=== PATIENT | female | born 1950 | race Caucasian/White ===

== ENCOUNTER 2019-12-13 11:22 | Outpatient (CLI) | payer MEDICARE, SELFPAY ==
--- NOTE | ~2019-12-13 | MM_ITS ---
EXAMINATION: MM screening kaden BI w carlos a HISTORY: Screening mammogram TECHNIQUE: Craniocaudal and mediolateral oblique 3-D tomosynthesis images were obtained and synthetic 2-D images were generated. CAD analysis was submitted and interpreted. COMPARISON: 12/30/2017, 12/15/2016, 10/30/2015 bilateral digital screening mammogram examinations BREAST PARENCHYMAL COMPOSITION: The breasts are heterogeneously dense, which may obscure small masses . FINDINGS: Occasional benign calcifications. There is no evidence of suspicious mass, calcification, o r architectural distortion to suggest malignancy in either breast. There has been no suspicious inter cortney change. IMPRESSION: 1. No mammographic evidence of malignancy. 2. Recommend routine screening mammography in one year. BI-RADS Category 2: Benign finding(s). Reviewed, dictated and finalized at location A. [employer] PROFESSION[employer]
== END 2019-12-13 11:23 | disposition home or self-care (01) ==
LOC: ANHIMG 11:25
PROVIDERS: PCP Internal Medicine; Visit Provider Nurse Practitioner
DX: Z12.31 Encounter for screening mammogram for malignant neoplasm of breast (principal)
CPT/HCPCS: 77063; 77067

== ENCOUNTER 2021-01-10 08:10 | Outpatient (CLI) | payer MEDICARE, SELFPAY ==
[2021-01-10 08:41] LABS: Eosinophils Absolute Auto 0.2 K/mm3 (0-0.3); Eosinophils Percent Auto 3.8 % (0-4.4); Hematocrit 39.3 % (37.0-47.0); Hemoglobin 12.5 g/dL (12.0-15.0); Immature Granulocyte Absolute 0.01 K/mm3 (0.00-0.031); Immature Granulocyte Percent A 0.2 % (0-0.5); Lymphocytes Absolute Auto 1.22 K/mm3 (0.9-3.2); Lymphocytes Percent Auto 29.1 % (18.3-44.2); Mean Corpuscular HGB Conc 31.8 g/dl (32-36); Mean Corpuscular Hemoglobin 30.6 pg (26-34); Mean Corpuscular Volume 96.1 fl (80-100); Mean Platelet Volume 9.7 fl (7.4-10.4); Monocytes Absolute Auto 0.4 K/mm3 (0.1-0.6); Monocytes Percent Auto 10.3 % (2.6-8.5); Neutrophils Absolute Auto 2.3 K/mm3 (1.3-6.7); Neutrophils Percent Auto 55.6 % (45.5-73.1); Platelet Count Result 259 k/mm3 (150-375); Red Blood Count 4.09 M/mm3 (4.2-5.4); Red Cell Distribution Width 12.9 % (11.5-14.5); White Blood Count 4.2 K/mm3 (4.5-10.0)
[2021-01-10 08:55] LABS: Alanine Aminotransferase 20 U/L (4-35); Albumin Level 4.4 g/dL (3.5-5.1); Alkaline Phosphatase 65 U/L (38-126); Anion Gap 2 mmol/L (8-16); Aspartate Amino Transferase 31 U/L (14-36); Bilirubin,Total 0.6 mg/dL (0.2-1.3); Blood Urea Nitrogen 20 mg/dL (7-17); Carbon Dioxide 33 mmol/L (22-30); Chloride 107 mmol/L (98-107); Cholesterol 215 mg/dL (0-200); Estimated Glomerular Filt Rate > 60; Glucose 94 mg/dL (65-105); HDL Direct 83 mg/dL; Potassium 4.1 mmol/L (3.4-5.0); Sodium 142 mmol/L (137-145); Triglycerides 60 mg/dL (<150)
[2021-01-10 09:06] LABS: LDL Cholesterol Direct 85 mg/dL
== END 2021-01-10 08:11 | disposition home or self-care (01) ==
PROVIDERS: PCP Internal Medicine; Visit Provider Nurse Practitioner
DX: E78.00 Pure hypercholesterolemia, unspecified (principal); Z13.228 Encounter for screening for other metabolic disorders; E03.9 Hypothyroidism, unspecified; Z79.899 Other long term (current) drug therapy
CPT/HCPCS: 36415; 80053; 80061; 82248; 84443; 85025

== ENCOUNTER 2021-01-22 16:00 | Outpatient (CLI) | payer MEDICARE, SELFPAY ==
--- NOTE | ~2021-01-22 | MR_ITS ---
EXAMINATION: MR shoulder LT wo con DATE: 01/22/2021 16:54 INDICATION: Left shoulder pain. TECHNIQUE: Magnetic resonance imaging (MRI) of the left shoulder was performed without intravenous co ntrast. Sequences included axial PD-weighted FS FSE, coronal oblique PD-weighted FS FSE and T2-weight ed FS FSE, and sagittal oblique T2-weighted FS FSE and T1-weighted FSE. COMPARISON: None. FINDINGS: Coracoacromial arch: The acromion undersurface is curved in morphology (type II). There is severe acromioclavicular joint osteoarthritis. There is mild subacromial/subdeltoid bursitis. Rotator cuff: There is severe supraspinatus tendinopathy with shallow bursal sided fraying. There is mild infraspin atus tendinopathy. Teres minor tendon is normal. There is mild subscapularis tendinopathy. There is n o asymmetric fatty atrophy of the rotator cuff muscle bellies. Biceps tendon and glenoid labrum: Biceps tendon is in bicipital groove. There is severe intra-articular biceps tendinopathy. There is d egeneration of the superior labrum without well-defined tear. Fluid: There is no glenohumeral joint effusion. Bones/cartilage: There is cartilage surface irregularity of glenoid and humeral head. IMPRESSION: 1. Severe rotator cuff tendinopathy with shallow bursal sided fraying of supraspinatus tendon. 2. Mild glenohumeral joint chondrosis. 3. Severe acromioclavicular joint osteoarthritis. 4. Mild subacromial/subdeltoid bursitis. 5. Severe intra-articular biceps tendinopathy. Reviewed, dictated and finalized at location A. IMPRESSION: 1. Severe rotator cuff tendinopathy with shallow bursal sided fraying of supras pinatus tendon. 2. Mild glenohumeral joint chondrosis. 3. Severe acromioclavicular joint osteoarthritis. 4. Mild subacromial/subdeltoid bursitis. 5. Severe intra-articular biceps tendinopathy.
== END 2021-01-22 16:01 | disposition home or self-care (01) ==
PROVIDERS: PCP Internal Medicine; Visit Provider Nurse Practitioner
DX: M25.512 Pain in left shoulder (principal); M75.82 Other shoulder lesions, left shoulder; M22.2X2 Patellofemoral disorders, left knee; M19.012 Primary osteoarthritis, left shoulder; M75.52 Bursitis of left shoulder; M75.22 Bicipital tendinitis, left shoulder
CPT/HCPCS: 73221

== ENCOUNTER 2021-02-27 15:01 | Outpatient (CLI) | payer MEDICARE, SELFPAY ==
--- NOTE | ~2021-02-27 | DEXA_ITS ---
Bone Density Report Name: Rosita Haile Age: 70 Sex: Female Ethnicity: White Date of : 1950 Indication: osteopenia; monitoring treatment; Referring Provider: Elsi Hudson Study: Bone densitometry was performed. Exam Date: February 27, 2021 Accession number: [id number] Bone Density: Region BMD T-score Z-score Classification AP Spine (L1-L4) 0.796 -2.3 -0.3 Osteopenia Femoral Neck (Left) 0.757 -0.8 0.9 Normal Total Hip (Left) 0.798 -1.2 0.3 Osteopenia Total Hip Bilateral Avg 0.810 -1.1 0.4 Osteopenia Femoral Neck (Right) 0.779 -0.6 1.1 Normal Total Hip (Right) 0.821 -1.0 0.4 Normal World Health Organization criteria for BMD impression classify patients as: Normal (T-score at or above -1.0), Osteopenia (T-score between -1.0 and -2.5), or Osteoporosis (T-score at or below -2.5). 10-year Fracture Risk: FRAX not reported because: Treated for osteoporosis Previous Exams: Region Exam Age BMD T-score BMD Change BMD Change Date g/cm2 vs Baseline vs Previous AP Spine(L1-L4) 02/27/2021 70 0.796 -2.3 -0.013(-1.6%) -0.015(-1.8%) 11/09/2018 68 0.810 -2.2 0.002(0.2%) 0.002(0.2%) 11/21/2014 64 0.809 -2.2 Total Hip(Left) 02/27/2021 70 0.798 -1.2 -0.055(-6.4%)* -0.035(-4.2%)* 11/09/2018 68 0.834 -0.9 -0.019(-2.3%) -0.019(-2.3%) 11/21/2014 64 0.853 -0.7 Total Hip(Right) 02/27/2021 70 0.821 -1.0 -0.046(-5.3%)* 0.003(0.4%) 11/09/2018 68 0.817 -1.0 -0.049(-5.6%)* -0.049(-5.6%)* 11/21/2014 64 0.866 -0.6 *Denotes significance at 95% confidence level, LSC for AP Spine = 0.022 g/cm2, LSC for Total Hip = 0.027 g/cm2 Clinical Information Provided by Patient: Is being treated for osteoporosis Has used the following medications: Vitamin D, Calcium Patient maximum height was 64.5 Menopause Age: 55 Drinks caffeinated beverages Onset of menses at age 16 Number of children 2 Impression: The patient has low bone mass, based on the Total Spine T-score. The BMD for the Total Hip(Left) decreased, changing by -4.2% since the last DXA exam. Discussion: SIGNIFICANT BONE LOSS OBSERVED. Adherence to therapy (including calcium and vitamin D intake) should be assessed. If compliance is not a factor, review management and exclusion of secondary causes of bone loss. It is important to ask patients whether they are taking their medications and to encourage continued and appropriate compliance with their osteoporosis therapies to reduce
--- NOTE | ~2021-02-27 | MM_ITS ---
EXAMINATION: MM screening kaden BI w carlos a HISTORY: Screening TECHNIQUE: Craniocaudal and mediolateral oblique 3-D tomosynthesis images were obtained and synthetic 2-D images were generated. CAD analysis was submitted and interpreted. COMPARISON: Comparison to multiple prior studies sequentially, with oldest reviewed study dated 09/11. BREAST PARENCHYMAL COMPOSITION: The breasts are heterogeneously dense, which may obscure small masses . FINDINGS: There is no evidence of suspicious mass, calcification, or architectural distortion to sugg est malignancy in either breast. There has been no suspicious interval change. IMPRESSION: 1. No mammographic evidence of malignancy. 2. Recommend routine screening mammography in one year. BI-RADS Category 1: Negative Reviewed, dictated and finalized at location A.
== END 2021-02-27 15:02 | disposition home or self-care (01) ==
PROVIDERS: PCP Internal Medicine; Visit Provider Nurse Practitioner
DX: Z12.31 Encounter for screening mammogram for malignant neoplasm of breast (principal); Z78.0 Asymptomatic menopausal state; M85.88 Other specified disorders of bone density and structure, other site; M85.852 Other specified disorders of bone density and structure, left thigh
CPT/HCPCS: 77063; 77067; 77080

== ENCOUNTER 2021-12-17 07:03 | Outpatient (CLI) | payer MEDICARE, SELFPAY ==
[2021-12-17 07:19] LABS: Basophils Percent Auto 0.8 % (0.2-1.2); Eosinophils Absolute Auto 0.2 K/mm3 (0-0.3); Eosinophils Percent Auto 3.3 % (0-4.4); Hematocrit 37.5 % (37.0-47.0); Hemoglobin 12.1 g/dL (12.0-15.0); Immature Granulocyte Absolute 0.01 K/mm3 (0.00-0.031); Immature Granulocyte Percent A 0.2 % (0-0.5); Lymphocytes Absolute Auto 1.31 K/mm3 (0.9-3.2); Lymphocytes Percent Auto 26.8 % (18.3-44.2); Mean Corpuscular HGB Conc 32.3 g/dl (32-36); Mean Corpuscular Hemoglobin 30.6 pg (26-34); Mean Corpuscular Volume 94.9 fl (80-100); Mean Platelet Volume 9.4 fl (7.4-10.4); Monocytes Absolute Auto 0.4 K/mm3 (0.1-0.6); Neutrophils Absolute Auto 2.9 K/mm3 (1.3-6.7); Neutrophils Percent Auto 59.9 % (45.5-73.1); Platelet Count Result 249 k/mm3 (150-375); Red Blood Count 3.95 M/mm3 (4.2-5.4); Red Cell Distribution Width 12.8 % (11.5-14.5); White Blood Count 4.9 K/mm3 (4.5-10.0)
[2021-12-17 07:38] LABS: Alanine Aminotransferase 16 U/L (4-35); Albumin Level 4.2 g/dL (3.5-5.1); Alkaline Phosphatase 72 U/L (38-126); Anion Gap 3 mmol/L (8-16); Aspartate Amino Transferase 29 U/L (14-36); Bilirubin,Total 0.5 mg/dL (0.2-1.3); Blood Urea Nitrogen 17 mg/dL (7-17); Calcium 9.5 mg/dL (8.4-10.2); Carbon Dioxide 31 mmol/L (22-30); Chloride 109 mmol/L (98-107); Cholesterol 212 mg/dL (0-200); Estimated Glomerular Filt Rate > 60; Glucose 99 mg/dL (65-110); HDL Direct 69 mg/dL; Potassium 4.5 mmol/L (3.4-5.0); Sodium 143 mmol/L (137-145); Triglycerides 88 mg/dL (<150)
[2021-12-17 07:47] LABS: LDL Cholesterol Direct 86 mg/dL
[2021-12-17 09:25] LABS: Vitamin D 25 Hydroxy 59.8 ng/mL
== END 2021-12-17 07:04 | disposition home or self-care (01) ==
LOC: ANHLAB 07:06
PROVIDERS: PCP Internal Medicine; Visit Provider Nurse Practitioner
DX: E78.00 Pure hypercholesterolemia, unspecified (principal); M85.80 Other specified disorders of bone density and structure, unspecified site; E03.9 Hypothyroidism, unspecified; Z13.228 Encounter for screening for other metabolic disorders
CPT/HCPCS: 36415; 80053; 80061; 82306; 84443; 85025

== ENCOUNTER 2022-03-05 09:25 | Outpatient (CLI) | payer MEDICARE, SELFPAY ==
--- NOTE | ~2022-03-05 | MM_ITS ---
EXAMINATION: MM screening kaden BI w carlos a HISTORY: Screening mammogram TECHNIQUE: Craniocaudal and mediolateral oblique 3-D tomosynthesis images were obtained and synthetic 2-D images were generated. CAD analysis was submitted and interpreted. COMPARISON: 02/27/2021, 12/2019, 12/30/2017 bilateral screening mammogram examinations BREAST PARENCHYMAL COMPOSITION: The breasts are heterogeneously dense, which may obscure small masses . FINDINGS: There is no evidence of suspicious mass, calcification, or architectural distortion to sugg est malignancy in either breast. There has been no suspicious interval change. IMPRESSION: 1. No mammographic evidence of malignancy. 2. Recommend routine screening mammography in one year. BI-RADS Category 1: Negative Reviewed, dictated and finalized at location A.
== END 2022-03-05 09:26 | disposition home or self-care (01) ==
LOC: ANHIMG 09:26
PROVIDERS: PCP Internal Medicine; Visit Provider Nurse Practitioner
DX: Z12.31 Encounter for screening mammogram for malignant neoplasm of breast (principal)
CPT/HCPCS: 77063; 77067

== ENCOUNTER 2022-03-19 14:58 | Outpatient (CLI) | payer MEDICARE, SELFPAY ==
--- NOTE | ~2022-03-19 | XR_ITS ---
XR lumbar spine 2-3V DATE: 03/19/2022 15:15 INDICATION: Low back pain, right side. No injury. TECHNIQUE: AP, lateral, coned lateral lumbosacral views COMPARISON: None FINDINGS: There is a transitional lumbosacral vertebra and 4 functional lumbar vertebrae. There is mild levoscoliosis of the lumbar spine. No fracture or bone destruction. The included lower thoracic and lumbar pedicles are intact. There is moderately severe degenerative disc disease 2 interspaces above the transitional lumbosacral vertebra and mild degenerative disc disease and slight retrolisthesis at C3 interspaces above the tr ansitional lumbosacral vertebra. There is minimal degenerative disc disease 4 interspaces above the transitional lumbosacral vertebra. The sacroiliac joints are intact. IMPRESSION: Mild levoscoliosis Multilevel degenerative disc disease Reviewed, dictated and finalized at location A.
== END 2022-03-19 14:59 | disposition home or self-care (01) ==
PROVIDERS: PCP Internal Medicine; Visit Provider Nurse Practitioner
DX: M51.36 Other intervertebral disc degeneration, lumbar region (principal)
CPT/HCPCS: 72100

== ENCOUNTER 2022-08-06 11:53 | Outpatient (CLI) | payer MEDICARE, SELFPAY ==
[2022-08-06 19:34] LABS: Alanine Aminotransferase 19 U/L (6-35); Aspartate Amino Transferase 27 U/L (14-36)
== END 2022-08-06 11:54 | disposition home or self-care (01) ==
LOC: ANHGOSHLAB 11:58
PROVIDERS: PCP Internal Medicine; Visit Provider Podiatrist Foot & Ankle Surgery
DX: B35.1 Tinea unguium (principal)
CPT/HCPCS: 36415; 84450; 84460

== ENCOUNTER → 2022-08-06 12:12 | Outpatient (CLI) | payer MEDICARE, SELFPAY ==
--- NOTE | ~2022-08-06 | XR_ITS ---
XR hip RT min 2V 08/06/2022 12:31 Indication: Right hip pain Procedure: 3 views right hip Comparison: 05/13/2004 Findings: There is severe osteoarthritis of the right hip. No fracture or traumatic malalignment. No significant soft tissue abnormality. No foreign bodies. Impression: 1: Severe osteoarthritis of the right hip. Reviewed, dictated and finalized at location B. Impression: 1: Severe osteoarthritis of the right hip.
== END ==
PROVIDERS: PCP Nurse Practitioner; Visit Provider Nurse Practitioner
DX: M16.11 Unilateral primary osteoarthritis, right hip (principal)
CPT/HCPCS: 73502

== ENCOUNTER → 2022-08-12 13:11 | Outpatient (CLI) | payer MEDICARE, SELFPAY ==
--- NOTE | ~2022-08-12 | MR_ITS ---
EXAMINATION: MR lumbar spine wo con DATE: 08/12/2022 13:53 INDICATION: Low back pain. TECHNIQUE: Magnetic resonance imaging (MRI) of the lumbar spine was performed without intravenous con trast. Sequences included sagittal T2-weighted FSE, sagittal T2-weighted FS FSE, sagittal T1-weighted FSE, and axial T2-weighted FSE. COMPARISON: None. FINDINGS: There is 3 degrees levocurvature of lumbar spine. Vertebral body heights are normal. L5 is a transitional segment. Vertebral body heights are normal. There is mildly decreased disc height at L 2-L3, severely decreased disc height at L3-L4, and mildly decreased disc height at L4-L5. The distal spinal cord signal intensity is normal. The conus medullaris is at L1-L2. The following disc levels a re specifically discussed: L1-L2: The disc is bulging. There is mild bilateral facet joint osteoarthritis. There is mild bilater al neural foraminal stenosis. There is mild central canal stenosis. L2-L3: The disc is bulging and has an annular fissure. There is mild bilateral facet joint osteoarthr itis. There is mild bilateral neural foraminal stenosis. There is mild central canal stenosis. L3-L4: The disc is bulging and has an annular fissure. There is moderate bilateral facet joint osteoa rthritis. There is mild bilateral neural foraminal stenosis. There is mild central canal stenosis. L4-L5: The disc is bulging. There is severe bilateral facet joint osteoarthritis. There is mild bilat eral neural foraminal stenosis. There is mild central canal stenosis. L5-S1: The disc does not extend beyond the endplate margin. There is no facet joint osteoarthritis. T here is no neural foraminal stenosis. There is no central canal stenosis. IMPRESSION: 1. Severe lumbar spondylosis. Reviewed, dictated and finalized at location A.
== END ==
PROVIDERS: PCP Internal Medicine; Visit Provider Nurse Practitioner
DX: M47.896 Other spondylosis, lumbar region (principal)
CPT/HCPCS: 72148

== ENCOUNTER 2022-10-14 12:45 | Outpatient (CLI) | payer MEDICARE, SELFPAY ==
--- NOTE | 2022-10-14 12:56 | ECG_ITS ---
Measurements Intervals [place] Rate: 66 P: 71 [place]: 139 QRS: 23 QRSD: 89 T: 55 QT: 392 QTc: 412 Interpretive Statements SINUS RHYTHM ATRIAL PREMATURE COMPLEX BASELINE ARTIFACT- I, II, III, AVR, AVL, AVF BORDERLINE ECG NO PREVIOUS ECG AVAILABLE FOR COMPARISON Electronically Signed On 10-14-2022 13:45:18 [employer] by Dash Gonzales D.O.
== END 2022-10-14 12:46 | disposition home or self-care (01) ==
PROVIDERS: PCP Internal Medicine; Visit Provider Podiatrist Foot & Ankle Surgery
DX: E78.00 Pure hypercholesterolemia, unspecified (principal); Z01.818 Encounter for other preprocedural examination; R94.31 Abnormal electrocardiogram [ECG] [EKG]
CPT/HCPCS: 93005

== ENCOUNTER 2022-10-16 00:43 | Day surgery (SDC) | payer MEDICARE, SELFPAY ==
[2022-10-13 11:52] VITALS: BMI 18.1
--- NOTE | 2022-10-13 12:02 | PC.NURSE ---
PRE-OP INSTRUCTIONS, PLEASE READ CAREFULLY Report to the Outpatient Waiting Room, entrance under the green pavilion located off [facility], at time _0900_ on date _10/16/22_. Planned Procedure Time: _1100_. Time changes happen often and if your time is changed the preop area will call you the afternoon before. - You and your visitor will be asked to self-screen and do not enter if you have any COVID symptoms. - Only one visitor is requested with a max of two and NO children visitors are allowed at this time. - The patient visitor may be requested to leave or wait in car when not with patient due to distancing restrictions. - A mask is REQUIRED within the hospital. Patients may have clear liquids (water, carbonated beverages, clear teas, apple juice) until 3 hours prior to surgery with a maximum of 20 ounces. - No food from midnight until time of surgery Take the following medications with a SIP of water the morning of surgery: __LEVOTHYROXINE__ Medications to discontinue per physician _PT STATES ALREADY STOPPING VITAMINS/SUPPLEMENTS __ Date of last dose_10/11/22_ Please no make-up, nail burmese, hairspray, perfume, deodorant, or body powder the day of surgery. No jewelry (including any body piercings) or valuables the day of surgery, leave them at home. Please take a shower or bath the night before, or the morning of, surgery with an antibacterial soap. Wear comfortable, loose fitting clothing. - Jewelry must be removed prior to entering the operating room. Rings and piercings that are not removed may be cut off. - The hospital will not accept responsibility for valuables. - Please leave all valuables, including medications, at home the day of surgery. If you are going home after surgery, a licensed star route mail driver must drive you home. - NO public transportation without another adult if you receive anesthesia. - We recommend that an adult stay with you for 24 hours following discharge. - We also recommend that you do not drive, make important decision, drink alcoholic beverages, or take any drugs that were not prescribed by your health care provider for at least 24 hours after your discharge time. Follow any additional instructions given to you from your surgeon. If you or anyone in your household have experienced Covid symptoms in the past week, please notify your surgeon or the nurse liaison at the phone number below for possible testing. Telephone instructions given to _PATIENT_and asked if any additional questions and then verbalized understanding. Patient advised to call surgeon office or pre surgery nurse liaison [phone] if any additional questions.
--- NOTE | 2022-10-15 09:53 | WPDANESEPPF ---
Anes - Initial Pre Proc Eval Procedure: Operation Date: 10/16/22 11:00 Proposed Procedures p Arthrodesis of First Metatarsal Phalangeal Joint Left Foot - Calvin Washington JR, MD Date/Time: 10/15/22 09:53 Surgeon: Calvin Washington JR, MD Pre Op Diagnosis: Arthritic Bunion Left Foot Patient Data Age: 72 Gender: F Height: 1.61 m Weight: 47.27 kg Allergies Allergy/AdvReac Type Severity Reaction Status Date / Time No Known Allergies Allergy Mild Verified 10/13/22 11:49 Home Medications Medication Instructions Recorded Confirmed Type calcium carbonate-magnesium oxide 2 tablet PO DAILY 12/25/21 10/13/22 History 250 mg-155 mg tablet cholecalciferol (vitamin D3) 25 25 mcg PO DAILY 12/25/21 10/13/22 History mcg (1,000 unit) capsule fluticasone propionate 50 2 spray intranasal DAILY PRN 12/25/21 10/13/22 History mcg/actuation nasal Congestion spray,suspension (Flonase Allergy Relief) mecobalamin (vitamin B12) 1,000 1,000 mcg PO .qod 12/25/21 10/13/22 History mcg chewable tablet zinc 50 mg tablet 30 mg PO DAILY 12/25/21 10/13/22 History ascorbate calcium (vitamin C) 500 500 mg PO DAILY 03/31/22 10/13/22 History mg tablet vitamins A,C,D-quae-arfhkv 2,148 2 tablet PO DAILY 08/06/22 10/13/22 History mcg-113 mg-45 mg-17.4 mg tablet (PreserVision AREDS) levothyroxine 50 mcg tablet See Rx Instructions .Route 08/11/22 10/13/22 Rx .COMPLEX #90 tabs pravastatin 10 mg tablet See Rx Instructions .Route 09/15/22 10/13/22 Rx .COMPLEX #90 tabs terbinafine HCl 250 mg tablet 250 mg DAILY 10/13/22 10/13/22 History Patient hx anesthesia problems: none Family hx anesthesia problems: none Results Review: All pre-operative results and documents have been reviewed as part of the pre-operative evaluation. [facility] Past Medical History Medical History (Updated 10/15/22 @ 09:54 by Santy Mahan MD) Cataract Degenerative disc disease History of vaginal delivery Hypercholesterolemia Hypothyroidism Lumbar back pain Osteoarthritis Osteopenia Peripheral neuropathy Personal history of twin in prior Precancerous lesion (~11/2021) nose Surgical History Surgical History H/O left breast biopsy x 2 History of carpal tunnel release Left rist History of repair of cleft lip History of surgical removal of skin lesion Precancerous Nose Family History Family History Mother Cerebrovascular accident Family history of hypercholesterolemia Hypertension Dementia Thyroid disorder Father Lung cancer Hypertension Heart disease Son Hypertension Grandparent Diabetes mellitus Hypertension Thyroid disorder Uterine cancer Ovarian cancer Social History Social History Social History: Caffeine-2 cups daily Smoking status: Never smoker Second hand tobacco smoke exposure: No Alcohol intake: current Alcohol use details: LESS THAN 1 DRINK/WEEK Substance use: never Substance use type: does not use Living arrangements: with family Spiritual care concerns: No Anes - Eval Final PreProcedure Day of Procedure 10/15/22 09:53 Patient weight: normal Heart: regular rate and rhythm Lungs: clear to auscultation and normal air movement Airway: Mallampati scale class II Neurological: alert and oriented Last oral intake: >/= 8 hours ASA classification: II Emergent: no Anesthetic plan: proceed Anesthesia type and monitoring: general LMA Results Review: All pre-operative results and documents have been reviewed as part of the pre-operative evaluation. Informed Consent: The patient's anesthetic plan and its attendant risks and benefits were discussed with the patient/family/POA. Questions were solicited and answers provided to the satisfaction of the patient/family/POA.
[2022-10-16] VITALS (8 sets, daily range): BP systolic 104–140; BP diastolic 51–71; PULSE 61–78; RESP 10–16; TEMP 36.6–37.3; O2SAT 99–100
--- NOTE | ~2022-10-16 | XR_ITS ---
EXAMINATION: XR surgery orthopedic DATE: 10/16/2022 11:31 INDICATION: Arthritic bunion of left foot. TECHNIQUE: 2 intraoperative spot fluoroscopic views of left foot were obtained. I was not present. Fl uoroscopy exposure time was 5 seconds. COMPARISON: None. FINDINGS: There are changes of arthrodesis procedure of first metatarsophalangeal joint with dorsal p late and screws. IMPRESSION: 1. Arthrodesis of first metatarsophalangeal joint. Reviewed, dictated and finalized at location A. 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
--- NOTE | 2022-10-16 07:17 | WPDHPUPDATE1 ---
History and Physical Update Update Date/Time: 10/16/22 07:17 History and Physical has been reviewed, including an updated exam of the patient. There are NO changes in the patient's condition. Risks, benefits, and alternatives have been discussed and questions answered. Patient agrees to proceed with procedure.
[2022-10-16] MEDS: LACTATED RINGERS 1,000 ML 30 ML IV CONT ×2 (10:05→11:45)
[2022-10-16] MEDS: ceFAZolin 2 GM/D5W 50 ML 2 GM/50 ML BAG IVPB (10:34)
[2022-10-16] MEDS: LIDOCAINE HCL 2% PF INJ 5 ML VIAL 20 ML INFILTRATE (11:08)
--- NOTE | 2022-10-16 12:05 | W.PM.PROC2 ---
Procedure Note - Detailed Date of Procedure 10/16/22 Pre-op Diagnosis Arthritic Bunion Left Foot Post-op Diagnosis Same Procedure Performed Arthrodesis of the first metatarsal phalangeal joint left foot Surgeon Calvin Washington JR, TIM Anesthesia General and Local Indications Painful left first metatarsal with a prominent bunion deformity Findings several cartilage defects to the head of the first metatarsal with significant cartilage denudation Description of Procedure PROCEDURE IN DETAIL: Under mild sedation, the patient was brought into the operating room, placed on the operating table in supine position. A pneumatic ankle tourniquet was placed about the patient's ipsilateral ankle. Following general LMA, a local anesthetic block was obtained about the foot and ankle utilizing 20 cc of 2% Lidocaine plain and 0.5% Marcaine plain. The foot was then scrubbed, prepped, and draped in the usual aseptic manner. An Esmarch bandage was then used to exsanguinate the patient's foot and the pneumatic ankle tourniquet was then inflated. Surgery began in the following manner: Attention was directed to the dorsal aspect of the 1st metatarsophalangeal joint where there was a large subcutaneous prominence noted along the dorsomedial aspect of the joint. The incision was made starting along the central shaft of the 1st metatarsal and extending just proximal to the interphalangeal joint of the hallux. The incision was continued deep down through the subcutaneous tissues using sharp and blunt dissection. All bleeders were cauterized as necessary. At this point, the dissection was continued down to the level of the periosteum and capsular structures overlying the 1st metatarsophalangeal joint. A full length periosteum and capsular incision was made just medial to the extensor hallucis longus tendon. The periosteum and capsular structures were freed from the base of the proximal phalanx as well as the distal 1st metatarsal. At this point, the 1st metatarsophalangeal joint was identified. There was almost complete loss of articular cartilage to the head of the 1st metatarsal as well as the base of the proximal phalanx. There was significant broadening and hypertrophy of the 1st metatarsophalangeal joint. Utilizing a sagittal bone saw, the hypertrophied 1st metatarsal was resected dorsally, medially, and laterally. A power bur was used to make sure that there were no rough edges and also to further debride the hypertrophic 1st metatarsal. Next, a rongeur was used to resect all hypertrophic base of the proximal phalanx. At this point, the reamer system for the [employer] system was used to denude the degenerative cartilage from the head of the 1st metatarsal as well as the base of the proximal phalanx. The cartilage and subchondral bone were fully debrided utilizing the reamer system until healthy bleeding bone was noted. Next, a 2-0 drill bit was used to further fenestrate the head of the 1st metatarsal as well as the base of the proximal phalanx in order to allow fusion across the 1st metatarsophalangeal joint. Next, a 0.045 inch K-wire was driven from the medial aspect of the base of the proximal phalanx into the head of the 1st metatarsal in order to serve as temporary fixation. A large steel plate was used to make sure that the hallux was in a rectus position both in the sagittal plane as well as the frontal and transverse plane. Excellent position of the hallux was noted. Next, a CrossCHECK plate was placed atop the 1st metatarsophalangeal joint held in position with [place] wires. Utilizing standard principles and techniques, the 2 distal drill holes were drilled and two 2.7mm mm fully-threaded locking screws were driven from dorsal to plantar holding the distal aspect of the plate intact. At this point, a 3.5mm lag screw was driven from dorsal distal to proximal plantar across the 1st metatarsophalangeal joint through the plate sy
== END 2022-10-16 13:23 | disposition home or self-care (01) ==
PROVIDERS: PCP Internal Medicine; Visit Provider Podiatrist Foot & Ankle Surgery
PROC: (CPT 28750; principal; 2022-10-16 11:00)
DX: M21.612 Bunion of left foot (principal); M19.072 Primary osteoarthritis, left ankle and foot; E78.00 Pure hypercholesterolemia, unspecified; E03.9 Hypothyroidism, unspecified; G62.9 Polyneuropathy, unspecified; M85.80 Other specified disorders of bone density and structure, unspecified site
CPT/HCPCS: 28750; 99199; C1713; J0690; J1100; J1170; J2250; J2370; J2405; J2704; J3010; J7120

== ENCOUNTER 2023-08-19 06:54 | Outpatient (CLI) | payer MEDICARE, SELFPAY ==
[2023-08-19 08:18] LABS: Basophils Percent Auto 0.7 % (0.2-1.2); Eosinophils Absolute Auto 0.1 K/mm3 (0-0.3); Eosinophils Percent Auto 2.7 % (0-4.4); Hematocrit 38.7 % (37.0-47.0); Hemoglobin 11.9 g/dL (12.0-15.0); Immature Granulocyte Absolute 0.02 K/mm3 (0.00-0.031); Immature Granulocyte Percent A 0.5 % (0-0.5); Lymphocytes Absolute Auto 0.85 K/mm3 (0.9-3.2); Lymphocytes Percent Auto 20.5 % (18.3-44.2); Mean Corpuscular HGB Conc 30.7 g/dl (32-36); Mean Corpuscular Hemoglobin 29.7 pg (26-34); Mean Corpuscular Volume 96.5 fl (80-100); Mean Platelet Volume 9.9 fl (7.4-10.4); Monocytes Absolute Auto 0.5 K/mm3 (0.1-0.6); Monocytes Percent Auto 11.3 % (2.6-8.5); Neutrophils Absolute Auto 2.7 K/mm3 (1.3-6.7); Neutrophils Percent Auto 64.3 % (45.5-73.1); Platelet Count Result 265 k/mm3 (150-375); Red Blood Count 4.01 M/mm3 (4.2-5.4); Red Cell Distribution Width 12.8 % (11.5-14.5); White Blood Count 4.2 K/mm3 (4.5-10.0)
[2023-08-19 08:31] LABS: Alanine Aminotransferase 17 U/L (6-35); Alkaline Phosphatase 71 U/L (38-126); Anion Gap 3 mmol/L (8-16); Aspartate Amino Transferase 29 U/L (14-36); Bilirubin,Total 0.7 mg/dL (0.2-1.3); Blood Urea Nitrogen 21 mg/dL (7-17); Calcium 9.5 mg/dL (8.4-10.2); Carbon Dioxide 32 mmol/L (22-30); Chloride 105 mmol/L (98-107); Cholesterol 209 mg/dL (0-200); Estimated Glomerular Filt Rate > 60; Glucose 93 mg/dL (65-110); HDL Direct 74 mg/dL; Sodium 140 mmol/L (137-145); Triglycerides 55 mg/dL (<150)
[2023-08-19 08:42] LABS: LDL Cholesterol Direct 95 mg/dL
[2023-08-19 08:59] LABS: Thyroid Stimulating Hormone 0.507 uIU/mL (0.465-4.680)
== END 2023-08-19 06:55 | disposition home or self-care (01) ==
LOC: ANHLAB 07:00
PROVIDERS: PCP Internal Medicine; Visit Provider Nurse Practitioner
DX: E03.9 Hypothyroidism, unspecified (principal); E78.00 Pure hypercholesterolemia, unspecified; Z13.29 Encounter for screening for other suspected endocrine disorder
CPT/HCPCS: 36415; 80053; 80061; 84443; 85025

== ENCOUNTER 2023-09-27 13:02 | Emergency (ER) | payer MEDICARE, SELFPAY ==
[2023-09-27 13:15] VITALS: BP 100/64; PULSE 89; RESP 16; TEMP 37.7; O2SAT 98
--- NOTE | 2023-09-27 13:35 | ED.URI ---
HPI - URI/Sore Throat General Chief Complaint: Upper Respiratory Infection Stated Complaint: Sinus Infection Symptoms Time Seen by Provider: 09/27/23 13:30 Source: patient, RN notes reviewed and old records reviewed Mode of arrival: ambulatory Limitations: no limitations History of Present Illness HPI Narrative: 73-year-old female presents to [facility] with complaints of 2 weeks of some sinus congestion and pressure with symptoms increasing for the past 4-5 days. Patient reports that she has some right ear pressure, right sided facial pressure with frontal headache, cough with yellow phlegm noted. Patient reports that she has history of previous sinus infections and seasonal allergies.Patint reports that she has been using her nasocort and also some Vicks Vapo Rub for her symptoms.Patient reports no known fevers,chills or sweats or any body aches. MD elicited complaint: cough, rhinorrhea, nasal congestion and sinus pain Pertinent past history: sinusitis and seasonal allergies Onset (ago): week(s) (2 week sinus symptoms with increase 4-5 days) Consistency: progressively worsening Severity: moderate Able to tolerate fluids by mouth: Yes Treatments prior to arrival: other (Nasocort and Vicks vapo rub) Related Data Home Medications Medication Instructions Recorded Confirmed calcium carbonate-magnesium oxide 2 tablet PO DAILY 12/25/21 09/27/23 250 mg-155 mg tablet fluticasone propionate 50 2 spray intranasal DAILY PRN 12/25/21 09/27/23 mcg/actuation nasal Congestion spray,suspension (Flonase Allergy Relief) mecobalamin (vitamin B12) 1,000 1,000 mcg PO .qod 12/25/21 09/27/23 mcg chewable tablet zinc 50 mg tablet 30 mg PO DAILY 12/25/21 09/27/23 ascorbate calcium (vitamin C) 500 500 mg PO DAILY 03/31/22 09/27/23 mg tablet cholecalciferol (vitamin D3) 25 50 mcg PO DAILY 08/23/23 09/27/23 mcg (1,000 unit) capsule vitamins-lipotropics 200 mg-100 mg 2 tablet PO DAILY 08/23/23 09/27/23 tablet (Lipo-Flavonoid Plus) Allergies Allergy/AdvReac Type Severity Reaction Status Date / Time No Known Allergies Allergy Mild Verified 09/27/23 13:12 Review of Systems Review of Systems: CONSTITUTIONAL: Reports malaise,no chills, sweats, low grade fever. EYES: Denies visual changes, redness, or discharge. ENT: Reports rhinorrhea, congestion, sinus pain,right otalgia and no sore throat. CARDIOVASCULAR: Denies chest pain, palpitations, or edema. RESPIRATORY: Reports cough.? Denies dyspnea. GASTROINTESTINAL: Denies abdominal pain, nausea, vomiting, diarrhea SKIN: Denies rash or itching. MUSCULOSKELETAL: Denies myalgia. NEUROLOGIC: Frontal headache. All systems reviewed & are unremarkable except as noted in HPI and below PMFSH Past Medical History Medical History (Updated 09/28/23 @ 08:37 by Yolie Tirado NP) Cataract Degenerative disc disease History of vaginal delivery Hypercholesterolemia Hypothyroidism Lumbar back pain Osteoarthritis Osteopenia Peripheral neuropathy Personal history of twin in prior Precancerous lesion (~11/2021) nose Tinnitus Surgical History Surgical History H/O left breast biopsy x 2 History of bunionectomy (~10/2022) with left great toe fusion History of carpal tunnel release Left rist History of repair of cleft lip History of surgical removal of skin lesion Precancerous Nose Family History Family History Mother Cerebrovascular accident Family history of hypercholesterolemia Hypertension Dementia Thyroid disorder Father Lung cancer Hypertension Heart disease Son Hypertension Grandparent Diabetes mellitus Hypertension Thyroid disorder Uterine cancer Ovarian cancer Social History Social History Social History: Caffeine-2 cups daily Smoking status:
== END 2023-09-27 13:52 | disposition home or self-care (01) ==
PROVIDERS: Emergency Provider Registered Nurse; PCP Nurse Practitioner
DX: J01.40 Acute pansinusitis, unspecified (principal); E03.9 Hypothyroidism, unspecified; Z79.899 Other long term (current) drug therapy
CPT/HCPCS: 99213; G0463

== ENCOUNTER 2023-11-24 09:13 | Outpatient (CLI) | payer MEDICARE, SELFPAY ==
--- NOTE | ~2023-11-24 | MM_ITS ---
EXAMINATION: MM screening kaden BI w carlos a HISTORY: Screening mammogram TECHNIQUE: Craniocaudal and mediolateral oblique 3-D tomosynthesis images were obtained and synthetic 2-D images were generated. CAD analysis was submitted and interpreted. COMPARISON: 03/05/2022, 02/27/2021, 12/13/2019 BREAST PARENCHYMAL COMPOSITION: The breasts are heterogeneously dense, which may obscure small masses . FINDINGS: Scattered benign-appearing calcifications are present. No suspicious mass, calcification, o r architectural distortion are identified in either breast to suggest malignancy. There has been no s uspicious interval change. IMPRESSION: 1. No mammographic evidence of malignancy. 2. Recommend routine screening mammography in one year. BI-RADS Category 2: Benign finding(s). Reviewed, dictated and finalized at location A. K TRAILER FINAL INSPECTOR
== END 2023-11-24 09:14 | disposition home or self-care (01) ==
LOC: ANHIMG 09:15
PROVIDERS: PCP Internal Medicine; Visit Provider Nurse Practitioner
DX: Z12.31 Encounter for screening mammogram for malignant neoplasm of breast (principal); M85.80 Other specified disorders of bone density and structure, unspecified site; Z78.0 Asymptomatic menopausal state
CPT/HCPCS: 77063; 77067

== ENCOUNTER 2023-11-26 08:44 | Outpatient (CLI) | payer MEDICARE, SELFPAY ==
--- NOTE | ~2023-11-26 | DEXA_ITS ---
Bone Density Report Name: NEGIN MCKNIGHT Age: 73 Sex: Female Ethnicity: White Date of : 1950 Indication: postmenopausal; screening for osteoporosis; Referring Provider: SUSANA VERMA Study: Bone densitometry was performed. Exam Date: November 26, 2023 Accession number: [id number] Bone Density: Region BMD T-score Z-score Classification AP Spine(L1-L4) 0.698 -3.2 -1.0 Osteoporosis Femoral Neck (Left) 0.787 -0.6 1.3 Normal Total Hip (Left) 0.769 -1.4 0.2 Osteopenia Femoral Neck (Right) 0.727 -1.1 0.8 Osteopenia Total Hip (Right) 0.737 -1.7 -0.1 Osteopenia Total Hip Mean 0.753 -1.6 0.1 Osteopenia World Health Organization criteria for BMD impression classify patients as: Normal (T-score at or above -1.0), Osteopenia (T-score between -1.0 and -2.5), or Osteoporosis (T-score at or below -2.5). 10-year Fracture Risk: FRAX not reported because: Some T-score for Spine Total or Hip Total or Femoral Neck at or below -2.5 Clinical Information Provided by Patient: Has used the following medications: Vitamin D Has the following medical conditions: hypo thyroid Patient maximum height was 64.5 Menopause Age: 55 Drinks caffeinated beverages Onset of menses at age 16 Number of children 2 Impression: The patient has osteoporosis, based on the Total Spine T-score. Discussion: INCREASED RISK OF FRACTURE. BONE DENSITY IS UNDESIRABLY LOW AT ONE OR MORE SKELETAL SITES, CONSISTENT WITH POSTMENOPAUSAL OSTEOPOROSIS. This patient's lowest T-score meets the World Health Organization's (WHO) criteria for osteoporosis at one or more sites (T-score -2.5 or below). In untreated patients, the risk of osteoporotic fracture increases approximately two-fold for each 1.0 SD decrease in T-score. Low bone density is not the only risk factor for fracture; also consider factors such as patient's age, frailty or poor health, risk of falling, risk of injury, previous osteoporotic fracture, family history of osteoporosis, cigarette smoking, low body weight, etc. Not everyone with low bone mineral density has osteoporosis; osteomalacia and other metabolic bone disorders should also be considered. Patients who have osteoporosis should be evaluated for specific diseases and conditions (secondary causes) that may cause or contribute to bone loss. The [place] [employer] Endocrinologists (AACE) and National Osteoporosis Foundation (NOF) recommend pharmacologic intervention for all postmenopausal women whose T-score is in this range. The patient should follow a healthful lifestyle (good nutrition with adequate calcium and vitamin D, and appropriate weight-bearing exercise). Follow-Up: Consider a repeat BMD and Vertebral Fracture Assessment (VFA) exam in 2 years or sooner if medically necessary, to reassess this patien
== END 2023-11-26 08:45 | disposition home or self-care (01) ==
PROVIDERS: PCP Internal Medicine; Visit Provider Nurse Practitioner
DX: M81.0 Age-related osteoporosis without current pathological fracture (principal); M85.80 Other specified disorders of bone density and structure, unspecified site; Z78.0 Asymptomatic menopausal state; Z12.31 Encounter for screening mammogram for malignant neoplasm of breast
CPT/HCPCS: 77080

== ENCOUNTER 2024-04-19 16:14 | Outpatient (CLI) | payer MEDICARE, SELFPAY ==
[2024-04-19 17:45] LABS: Alanine Aminotransferase 20 U/L (6-35); Aspartate Amino Transferase 31 U/L (14-36)
== END 2024-04-19 16:15 | disposition home or self-care (01) ==
PROVIDERS: PCP Nurse Practitioner; Visit Provider Podiatrist Foot & Ankle Surgery
DX: B35.1 Tinea unguium (principal)
CPT/HCPCS: 36415; 84450; 84460

== ENCOUNTER 2024-09-01 06:54 | Outpatient (CLI) | payer MEDICARE, SELFPAY ==
[2024-09-01 07:44] LABS: Alanine Aminotransferase 21 U/L (6-35); Albumin Level 4.1 g/dL (3.5-5.1); Alkaline Phosphatase 68 U/L (38-126); Anion Gap 6 mmol/L (4-12); Aspartate Amino Transferase 31 U/L (14-36); Bilirubin,Total 0.5 mg/dL (0.2-1.3); Blood Urea Nitrogen 18 mg/dL (7-17); Calcium 9.5 mg/dL (8.4-10.2); Carbon Dioxide 31 mmol/L (22-30); Chloride 104 mmol/L (98-107); Cholesterol 220 mg/dL (0-200); Estimated Glomerular Filt Rate > 60; Glucose 99 mg/dL (65-110); HDL Direct 92 mg/dL; Potassium 3.8 mmol/L (3.4-5.0); Sodium 141 mmol/L (137-145); Triglycerides 78 mg/dL (<150)
[2024-09-01 07:55] LABS: LDL Cholesterol Direct 79 mg/dL
[2024-09-01 07:56] LABS: Basophils Absolute Auto 0.1 K/mm3 (0.0-0.1); Eosinophils Absolute Auto 0.3 K/mm3 (0-0.3); Eosinophils Percent Auto 5.6 % (0-4.4); Hematocrit 37.9 % (37.0-47.0); Hemoglobin 12.2 g/dL (12.0-15.0); Immature Granulocyte Absolute 0.01 K/mm3 (0.00-0.031); Immature Granulocyte Percent A 0.2 % (0-0.5); Lymphocytes Absolute Auto 1.26 K/mm3 (0.9-3.2); Lymphocytes Percent Auto 24.3 % (18.3-44.2); Mean Corpuscular HGB Conc 32.2 g/dl (32-36); Mean Corpuscular Hemoglobin 30.7 pg (26-34); Mean Corpuscular Volume 95.2 fl (80-100); Mean Platelet Volume 9.7 fl (7.4-10.4); Monocytes Absolute Auto 0.4 K/mm3 (0.1-0.6); Monocytes Percent Auto 7.5 % (2.6-8.5); Neutrophils Absolute Auto 3.2 K/mm3 (1.3-6.7); Neutrophils Percent Auto 61.4 % (45.5-73.1); Platelet Count Result 345 k/mm3 (150-375); Red Blood Count 3.98 M/mm3 (4.2-5.4); White Blood Count 5.2 K/mm3 (4.5-10.0)
[2024-09-01 07:58] LABS: Iron 71 ug/dL (37-170)
[2024-09-01 08:08] LABS: Percent Iron Saturation 28 % (20-50)
[2024-09-01 08:53] LABS: Vitamin B12 > 1000.0 pg/mL (239-931)
[2024-09-01 09:19] LABS: Vitamin D 25 Hydroxy 63.3 ng/mL
== END 2024-09-01 06:55 | disposition home or self-care (01) ==
PROVIDERS: PCP Nurse Practitioner; Visit Provider Nurse Practitioner
DX: E55.9 Vitamin D deficiency, unspecified (principal); D64.9 Anemia, unspecified; E03.9 Hypothyroidism, unspecified; E78.00 Pure hypercholesterolemia, unspecified
CPT/HCPCS: 36415; 80053; 80061; 82306; 82607; 82728; 82746; 83540; 83550; 84443; 85025

== ENCOUNTER 2024-09-20 14:18 | Emergency (ER) | payer MEDICARE, SELFPAY ==
--- NOTE | 2024-09-20 14:20 | ED.URI ---
HPI - URI/Sore Throat General Chief Complaint: Upper Respiratory Infection Stated Complaint: Sinus Infection Symptoms Time Seen by Provider: 09/20/24 14:20 Source: patient Mode of arrival: ambulatory Limitations: no limitations History of Present Illness HPI Narrative: Rosita is a 72-year-old female patient presenting to the clinic today possible sinus infection. Having some pain over the ethmoid sinuses as well as some green nasal drainage and a cough. She denies any chest pain or shortness of breath. She denies any fever, chills body aches. Symptoms have been going on for approximately 4-5 days. MD elicited complaint: sore throat and nasal congestion Related Data Home Medications ?Medication ?Instructions ?Recorded ?Confirmed ?Last Taken ?Type mecobalamin (vitamin B12) 1,000 1,000 mcg PO .qod 12/25/21 09/04/24 10/11/22 History mcg chewable tablet zinc 50 mg tablet 30 mg PO DAILY 12/25/21 09/04/24 10/11/22 History ascorbate calcium (vitamin C) 500 500 mg PO DAILY 03/31/22 09/04/24 10/11/22 History mg tablet cholecalciferol (vitamin D3) 25 50 mcg PO DAILY 08/23/23 09/04/24 Unknown History mcg (1,000 unit) capsule mv-mn-folic 200 mcg-vit K 15 cap PO 12/03/23 09/04/24 Unknown History mcg-lutein 5 mg-zeaxanthin 1 mg capsule (PreserVision AREDS 2 Plus Multivit) triamcinolone acetonide 55 mcg intranasal 12/03/23 09/04/24 Unknown History mcg/actuation nasal spray,aerosol Allergies Allergy/AdvReac Type Severity Reaction Status Date / Time No Known Allergies Allergy Mild Verified 09/20/24 14:40 Review of Systems Review of Systems: Pertinent positives per HPI. Patient denies any fever, chills, rash, headache, visual changes, dizziness, shortness of breath, chest pain, palpitations, nausea, vomiting, diarrhea, constipation, abdominal pain, or any urinary issues. [facility] Past Medical History Medical History Age related osteoporosis Tinnitus Peripheral neuropathy Personal history of twin in prior History of vaginal delivery Degenerative disc disease Lumbar back pain Precancerous lesion (~11/2021) nose Cataract Hypothyroidism Hypercholesterolemia Osteopenia Osteoarthritis Surgical History Surgical History History of bunionectomy (~10/2022) with left great toe fusion History of carpal tunnel release Left rist History of repair of cleft lip History of surgical removal of skin lesion Precancerous Nose H/O left breast biopsy x 2 Family History Family History Mother Cerebrovascular accident Family history of hypercholesterolemia Hypertension Dementia Thyroid disorder Father Lung cancer Hypertension Heart disease Son Hypertension Grandparent Diabetes mellitus Hypertension Thyroid disorder Uterine cancer Ovarian cancer Social History Social History Social History: Caffeine-2 cups daily Smoking status: Never smoker Second hand tobacco smoke exposure: No Alcohol intake: current Alcohol use details: LESS THAN 1 DRINK/WEEK Substance use: never Substance use type: does not use Lack of Transportation: No Lack of Food: Never True Current Housing: I Have Housing Concerned About Future Housing: No Difficulty Paying Gas/Electric Bills: No Difficulty Paying for Meds: No Currently Unemployed: No Education: Bachelor's Degree Difficulty w/ Childcare or Family Care: No Living arrangements: with family Spiritual care concerns: No Comments At the time of my signature, I reviewed and agree with the nursing past medical, surgical, social, and family history. There is no relevant family history pertinent to the patient complaint. Exam Narrative: General: Well-developed, well nourished, in no apparent distress Head: Normocephalic, atraumatic Eyes: Pupils equally round and reactive to light bilaterally, EOM intact, sclera and conjunctive clear, no discharge, lids normal Ears: TMs intact and clear, ear canals clear, no drainage, grossly hearing normal. Nose: Nares patent, clear nasal discharge, mild inflammation, ethmoid sinus tenderness. Mouth: Oral pharynx without lesions or masses, good dentition, MMM. Postnasal drip Neck: Supple, trachea midline, no enlargement of anterior or posterior cervical nodes, no thyroid masses or goiter palpable. Cardio: Regular rate and rhythm, s1 and s2 normal, no murmur appreciated. Resp: Clear to auscultation bilaterally, no rhonchi, rales, wheezing or rubs Course Course Emergency Course: Portions of this record may have been created with voice recognition software. Level of Care: Express Care Visit Vital Signs Vital signs: Vital signs reviewed MDM - URI/Sore Throat MDM Narrative Medical decision making narrative: At the time of visit patient is resting comfortably on the exam table. Patient appears to be nontoxic. Plan: I suspect patient has URI. Prescription for prednisone was sent to the pharmacy. Supportive measures were discussed with the patient and they voiced understanding discharge instructions and agrees to treatment plan. Return precautions reviewed Differential Diagnosis Differential diagnosis: Likely upper respiratory infection, otitis media, sinusitis, viral infection, bronchitis, influenza, pharyngitis and other (COVID) Discharge Plan Discharge Clinical Impression: URI (upper respiratory infection) Qualifiers: URI type: unspecified URI Qualified Code(s): J06.9 - Acute upper respiratory infection, unspecified Patient Disposition: Home, Self-Care Condition: Stable Instructions: Antibiotic Form, Cold Symptoms (ED) Additional Instructions: Take prescription medications only as prescribed-prednisone Increase fluids and stay well hydrated Tylenol/motrin for pain/fever Flonase and OTC antihistamines as directed Vicks vapor rub to open sinuses Sinus rinses for congestion Cepacol spray, cough drops, throat lozenges, warm tea with honey/lemon, gargle salt water to soothe throat BRAT diet for diarrhea Clear liquids x 24 hours then advance as tolerated for nausea/vomiting Go to the ED if you develop a worsening in your condition- high fever not controlled by Tylenol or Motrin, dehydration, weakness, lethargy, shortness of breath, or chest pain. Follow up with your PCP in 3-5 days if symptoms persist. Patient Language: Vietnamese Prescriptions: New prednisone 20 mg tablet 40 mg PO DAILY 5 Days Qty: 10 0RF No Action zinc 50 mg tablet 30 mg PO DAILY mecobalamin (vitamin B12) 1,000 mcg tablet,chewable 1,000 mcg PO .qod cholecalciferol (vitamin D3) 25 mcg (1,000 unit) capsule 50 mcg PO DAILY ferrous sulfate 134 mg (27 mg iron) tablet 134 mg PO DAILY Qty: 90 3RF ascorbate calcium (vitamin C) 500 mg tablet 500 mg PO DAILY PreserVision AREDS 2 Plus MV 200 mcg-15 mcg- 5 mg-1 mg capsule PO triamcinolone acetonide 55 mcg/actuation aerosol intranasal alendronate [Fosamax] 70 mg tablet 70 mg PO WEEKLY Qty: 12 3RF levothyroxine 50 mcg tablet 50 mcg PO DAILY Qty: 90 3RF pravastatin 10 mg tablet 10 mg PO DAILY Qty: 90 1RF Follow-up/Referrals: Phu Regalado DO [Primary Care Provider] - Time of Disposition: 14:42 Quality NIHSS Nursing Documentation ED NIHSS nursing documentation: reviewed/agree
[2024-09-20 14:32] VITALS: BP 116/66; PULSE 94; RESP 16; TEMP 37.3; O2SAT 97
== END 2024-09-20 14:50 | disposition home or self-care (01) ==
PROVIDERS: Emergency Provider Nurse Practitioner Family; PCP Internal Medicine
DX: J06.9 Acute upper respiratory infection, unspecified (principal); E03.9 Hypothyroidism, unspecified; E78.00 Pure hypercholesterolemia, unspecified; M85.80 Other specified disorders of bone density and structure, unspecified site; M19.90 Unspecified osteoarthritis, unspecified site; G62.9 Polyneuropathy, unspecified; M81.0 Age-related osteoporosis without current pathological fracture
CPT/HCPCS: 99213; G0463

== ENCOUNTER 2025-04-02 10:20 | Outpatient (CLI) | payer MEDICARE, SELFPAY ==
--- NOTE | ~2025-04-02 | MM_ITS ---
EXAMINATION: MM screening kaden BI w carlos a HISTORY: Screening mammogram TECHNIQUE: Craniocaudal and mediolateral oblique 3-D tomosynthesis images were obtained and synthetic 2-D images were generated. CAD analysis was submitted and interpreted. COMPARISON: 11/24/2023, 03/05/2022 BREAST PARENCHYMAL COMPOSITION:Dense: The breasts are extremely dense, which lowers the sensitivity o f mammography. FINDINGS: No suspicious mass, calcification, or architectural distortion are identified in either sundar ast to suggest malignancy. There has been no suspicious interval change. IMPRESSION: No mammographic evidence of malignancy. Recommend routine screening mammography in one year. BI-RADS Category 1: Negative Reviewed, dictated and finalized at location M.
== END 2025-04-02 10:21 | disposition home or self-care (01) ==
PROVIDERS: PCP Internal Medicine; Visit Provider Nurse Practitioner
DX: Z12.31 Encounter for screening mammogram for malignant neoplasm of breast (principal)
CPT/HCPCS: 77063; 77067

== ENCOUNTER 2025-09-03 07:03 | Outpatient (CLI) | payer MEDICARE, SELFPAY ==
--- OUTSIDE RECORDS SUMMARY | 2025-09-03 07:06 | XMS_ITS | Encounter Summary ---
Author Organization [facility] Address [address] [place] [address] Care Team Providers Care Shellacker Name Role Phone Phu Regalado DO Primary Care Provider Encounter Details Date Type Department Care Team (Late st Contact Info) Description 07/30/2005 Outpatient [facility] Internal Medicine [address] [phone] Sukhwinder Leo MD [address] [place] [phone] Social History Tobacco Use Types Packs/Day Years Used Date Smoking Tobacco: Never Assessed Comments Unknown Sex and Gender Information Value Date Recorded Sex Assigned at Not on file Legal Sex Female 2:58 AM MANAGER BUSINESS INTELLIGENCE Gender Identity Not on file Sexual Orientation Not on file documented as of this encounter Plan of Treatment Not on file documented as of this encounter Visit Diagnoses Not on filedocumented in this encounter Care Teams Shellacker Relationship Specialty Start Date End Date Phu Regalado DO [address] [facility] [address] [place] [address] PCP - General Internal Medicine 11/21/14 documented as of this encounter
--- OUTSIDE RECORDS SUMMARY | 2025-09-03 07:06 | XMS_ITS | Encounter Summary ---
Author Organization [facility] Address [address] [place] [address] Care Team Providers Care Infantry Assaultman Name Role Phone Phu Regalado DO Primary Care Provider Encounter Details Date Type Department Care Team (Late st Contact Info) Description 07/30/2005 Outpatient [facility] Internal Medicine [address] [phone] Sukhwinder Leo MD [address] [place] [phone] Social History Tobacco Use Types Packs/Day Years Used Date Smoking Tobacco: Never Assessed Comments Unknown Sex and Gender Information Value Date Recorded Sex Assigned at Not on file Legal Sex Female 2:58 AM ORACLE ERP ARCHITECT Gender Identity Not on file Sexual Orientation Not on file documented as of this encounter Plan of Treatment Not on file documented as of this encounter Visit Diagnoses Not on filedocumented in this encounter Care Teams Infantry Assaultman Relationship Specialty Start Date End Date Phu Regalado DO [address] [facility] [address] [place] [address] PCP - General Internal Medicine 11/21/14 documented as of this encounter
--- OUTSIDE RECORDS SUMMARY | 2025-09-03 07:06 | XMS_ITS | Clinical Summary ---
Author Organization [facility] Address [address] [place] [phone] Care Team Providers Care Dairy Quality Assurance Officer Name Role Phone Sabine Phu Pina DO Primary Care Provider Allergies Active Allergy Reactions Criticality Noted Date Comments No Known Allergies 07/30/2005 Medications CALCIUM LACTATE ORAL Take by mouth 3 times daily. Active OMEGA-3 FATTY ACIDS (FISH OIL ORAL) Take by mouth daily. Tuna Active CYANOCOBALAMIN, VITAMIN B-12, (VITAMIN B-12 ORAL) Take by mouth. Active raloxifene (EVISTA) 60 mg Oral tablet Take 1 Tab by mouth daily. 90 Tab 3 11/29/2012 Active aspirin (CONCEPCIÓN) 81 mg Oral Tab Take 1 Tab by mouth daily with breakfast. 90 Tab 3 11/29/2012 Active pravastatin (PRAVACHOL) 20 mg tablet Take 1 Tab by mouth Daily LATE. 90 Tab 2 03/29/2014 Active SYNTHROID 50 mcg tabletIndication s:Hypothyroidism Take 1 Tab by mouth daily sleep manager. 30 Tab 4 07/26/2014 Active Active Problems Patient Care Coordination No te Formatting of this note migh t be different from the original. Prev visit done 11/29/12 Problem Noted Date Diagnosed Date Hypothyroidism 10/02/2013 Hyperlipidemia 06/05/2010 Vitamin D deficiency 06/05/2010 Vitamin B12 deficiency 06/05/2010 Symptomatic states associated with artificial me nopause 07/30/2005 Benign neoplasm of skin, site unspecified 2004 Resolved Problems Problem Noted Date Diagnosed Date Resolved Date Pain in joint, lower leg 03/20/2008 Breast screening, unspecified 07/31/2005 02/05/2011 Unspecified hereditary and i diopathic peripheral neuropathy 07/30/2005 02/05/2011 Screening for thyroid disorder 07/30/2005 03/20/2008 Screening for lipoid disorders 07/30/2005 03/20/2008 Need for prophylactic vaccin ation with tetanus-diphtheria (Td) 07/30/2005 03/20/2008 Immunizations Immunization Administration Dates Next Due (ADACEL/BOOSTRIX)(10 YR UP) TDAP VACCINE, 0.5ML, IM 04/07/2012 (PFIZER)(12 YR UP) COVID-19 VACCINE - EMERGENCY USE AUTHORIZATION, MRNA, [id number](PF) 30 MCG/0.3 ML IM SUSP 07/15/2021 (TDVAX)(7 YRS UP) TETANUS AN D DIPHTHERIA TOXOIDS, ADSORBED (2 LF OF TETANUS TOXOID AND 2 LF OF DIPHTHERIA TOXOID), 0.5ML (PF), IM 07/30/2005 Influenza Seasonal Unspecifi ed Formulation IM 07/25/2013,07/11/2012,07/11/2011,2009,08/11/2008 Influenza Vaccine Split 3+ Yrs IM 10/11/2003 Family History Medical History Relation Name Comments Heart Disease Father Lung Cancer Father Relation Name Status Comments Father Social History Tobacco Use Types Packs/Day Years Used Date Smoking Tobacco: Never Smokeless Tobacco: Never Alcohol Use Standard Drinks/Week Comments Yes 0 (1 standard drink = 0.6 oz pur e alcohol) Comments No Sex and Gender Information Value Date Recorded Sex Assigned at Not on file Legal Sex Female 2:58 AM ACTIVITY ASSISTANT Gender Identity Not on file Sexual Orientation Not on file Last Filed Vital Signs Vital Sign Reading Time Taken Comments Blood Pressure 100/64 09/28/2013 1:51 PM ACTIVITY ASSISTANT Pulse - - Temperature - - Respiratory Rate - - Oxygen Saturation - - Inhaled Oxygen Concentration - - Weight 50.3 kg (111 lb) 09/28/2013 1:51 PM ACTIVITY ASSISTANT Height 162.6 cm (5' 4) 09/28/2013 1:51 PM ACTIVITY ASSISTANT Body Mass Index 19.05 09/28/2013 1:51 PM ACTIVITY ASSISTANT Plan of Treatment Health Maintenance Due Date Last Done Comments FIT-DNA Q 3 years 1997 FIT/FOBT Q 1 year 1997 Flex Sig/CT Colonography Q 5 years 1997 PNEUMOCOCCAL VACCINE 50+ YEA RS (1 of 1 - PCV) 2002 ZOSTER VACCINE (1 of 2) 2002 BREAST CANCER SCREENING 09/15/2013 09/15/20 12, 02/08/2011, 02/08/2007 OSTEOPOROSIS SCREENING 09/15/2013 09/15/2012, 2011 COLORECTAL SCREENING 11/04/2021 11/04/2011, 10/15/2008, 10/15/2008 Colorectal Cancer Screening 11/04/2021 DTAP/TDAP/TD VACCINES (2 - T d or Tdap) 04/07/2022 04/07/2012, 07/30/2005 INFLUENZA VACCINE (#1) 2025 3, 07/11/2012, 07/11/2011, Additional history exists COVID-19 Vaccine (2 - 2024-2 6 season) 2025 07/15/2021 RSV VACCINE (60+ or ) (1 - 1-dose 75+ series) 2027 Procedures Procedure Name Priority Date/Time Associated Diagnosis Comments XR DEXA BONE DENSITY AXIAL 1 OR MORE SITES Routine 09/15/2012 ENDOSCOPY, COLON, SCREENING Routine 11/04/2011 from Last 3 Months or Most Recently Relevant to Health Maintenance Results * XR DEXA BONE DENSITY AXIAL 1 OR MORE SITES (09/15/2012) Anatomical Region Laterality Modality Other us Abstract Provider DIAGNOSTIC IMAGING ORDERABLES Final Result * ENDOSCOPY, COLON, SCREENING (11/04/2011) us Sukhwinder Leo MD GI PROCEDURE ORDERABLES Final Result [facility] from Last 3 Months or Most Recently Relevant to Health Maintenance Insurance [facility] OPT[employer] PPO [id number] MEDICARE PART A AND B Advance Directives For more information, please contact: [phone] Documents on File Type Date Recorded Patient Statement Clerk Expl anation Advance Directive POA 06/05/2010 Advance Directive Living Will 06/05/2010 Care Teams Dairy Quality Assurance Officer Relationship Specialty Start Date End Date Phu Regalado DO [address] [facility] [address] [place] [address] PCP - General Internal Medicine 11/21/14
--- OUTSIDE RECORDS SUMMARY | 2025-09-03 07:06 | XMS_ITS | Clinical Summary ---
Author Organization [facility] Address [address] [place] [address] Care Team Providers Care Insecticide Supervisor Name Role Phone Phu Regalado DO Primary Care Provider [phone] Allergies No known active allergies Medications levothyroxine (SYNTHROID) 50 mcg tabletIndication s:hypothyroidism Take 1 tablet (50 mcg total) by mouth programs assistant before breakfast 2 Active pravastatin (PRAVACHOL) 10 mg tabletIndication s:hyperlipidemia Take 1 tablet (10 mg total) by mouth every morning 2 Active terbinafine (LamiSIL) 250 mg tabletIndication s:Prevention of fungel infection Take 1 tablet (250 mg total) by mouth every morning 7 days a month 2 Active cholecalciferol (VITAMIN D-3) 2000 unit capsule Take 1 capsule (2,000 Units total) by mouth every morning Active melatonin 5 mg tablet Take 1 tablet (5 mg total) by mouth nightly as needed (sleep) Active aspirin 81 mg enteric coated tabletIndication s:prevention of thrombosis Take 1 tablet (81 mg total) by mouth 2 (two) times a day 60 tablet 4 Active Additional Information Patient not taking.Reported on 11/16/2024 amoxicillin 500 mg tablet/capsuleIn dications:Prophy laxis, Medical TAKE 4 PILL 1 HOUR BEFORE DENTAL APPOINTMENT. 4 tablet/capsu le 3 4 Active Additional Information Patient taking differently: 2,000 mg oral As needed, dental work, TAKE 4 PILL 1 HOUR BEFORE DENTAL APPOINTMENT., Indications: Prophylaxis, Medical, Informant: Self, Reported on 12/07/2024 oxyCODONE (ROXICODONE) 5 mg immediate release tabletIndication s:Pain Take 1 tablet (5 mg total) by mouth every 4 (four) hours as needed for pain (breakthrough) 30 tablet 5 Active traMADoL (ULTRAM) 50 mg tablet Take 1 tablet (50 mg total) by mouth every 8 (eight) hours as needed for pain 42 tablet 5 Active alendronate (FOSAMAX) 70 mg tabletIndication s:Post-Menopausa l Osteoporosis Take 1 tablet (70 mg total) by mouth once a week . HOLD X 4-6 WEEKS AFTER SURGERY. 5 Active acetaminophen (TYLENOL) 500 mg tablet Take 2 tablets (1,000 mg total) by mouth every 8 (eight) hours 90 tablet 5 Active aspirin 81 mg enteric coated tablet Take 1 tablet (81 mg total) by mouth 2 (two) times a day 60 tablet 5 Active senna-docusate (PERICOLACE) 8.6-50 mg Take 2 tablets by mouth 2 (two) times a day May increase to 4 tablets twice daily if needed. HOLD medication for diarrhea. 80 tablet [address] (PROTONIX) 20 mg EC tablet Take 1 tablet (20 mg total) by mouth daily 30 tablet 5 Active meloxicam (MOBIC) 7.5 mg tablet Take 1 tablet (7.5 mg total) by mouth daily 30 tablet 5 Active Active Problems Problem Noted Date Diagnosed Date Osteoarthritis of left hip, unspecified osteoart hritis type 12/07/2024 Primary osteoarthritis of left hip 07/25/2024 Hip arthritis 12/30/2023 Hypothyroidism 12/20/2023 Right hip pain 08/24/2022 Low back pain 08/24/2022 Primary osteoarthritis of right hip 08/24/2022 Lumbosacral spondylosis without myelopathy 08/24 Immunizations Immunization Administration Dates Next Due Influenza, Quad, Adjuvantate d, Intramuscular 08/04/2022 Influenza, Quadrivalent, Hig h Dose, Preservative Free, Intrr 07/11/2021,07/18/2020 Influenza, Trivalent, High D ose, Split, Preservative Free, Intramuscular 07/07/2019,07/11/2018,07/15/2017 Influenza, Trivalent, IM (MDV) 3,07/11/2012,07/11/2011,07/11,08/11/2008,10/11/2003 Influenza, Trivalent, Preser vative Free, Intramuscular 08/06/2016 Pneumococcal Conjugate PCV 13 06/08/2018 Pneumococcal Polysaccharide PPV23 08/02/2019 Td, adsorbed 07/30/2005 Tdap 04/07/2012 ZOSTER Recombinant 06/19/2018 Surgical History Surgery Date Site/Laterality Comments CARPAL TUNNEL RELEASE 10/11/2017 - 10/10/2018 Right BUNIONECTOMY 10/11/2022 - 11/10/2022 Left CLEFT LIP REPAIR VAGINAL DELIVERY VAGINAL DELIVERY COLONOSCOPY HIP ARTHROPLASTY Right Medical History Medical History Date Comments Arthritis Thyroid disease Hypothyroidism Hyperlipidemia Osteopenia Osteoporosis Motion sickness Tinnitus Family History Medical History Relation Name Comments Cancer Father Stroke Mother Anesthesia problems Neg Hx Relation Name Status Comments Father Mother Social History Tobacco Use Types Packs/Day Years Used Date Smoking Tobacco: Never Smokeless Tobacco: Never Tobacco Cessation:Counseling Given: Not Answered AUDIT-C Answer Date Recorded Q1: How often do you have a drink containing alc ohol? 2-4 times a month 12/07/2024 Q2: How many drinks containi ng alcohol do you have on a typical day when you are drinking? 1 or 2 12/07/2024 Q3: How often do you have si x or more drinks on one occasion? Never 12/07/2024 Personal Safety Answer Date Recorded Have you ever been in or are you currently in a harmful physical or emotional relationship or is someone making you feel afraid or unsafe? Denies 12/07/2024 Comments No Sex and Gender Information Value Date Recorded Sex Assigned at Not on file Legal Sex Female 7:24 PM FLOW WORKER Gender Identity Female 12/08/2023 5:45 PM FLOW WORKER Sexual Orientation Not on file Last Filed Vital Signs Vital Sign Reading Time Taken Comments Blood Pressure 116/64 12/08/2024 10:31 AM FLOW WORKER Pulse 71 12/08/2024 10:31 AM FLOW WORKER Temperature 36.4 C (97.5 F) 12/08/2024 7:48 AM FLOW WORKER Respiratory Rate 20 12/08/2024 7:48 AM FLOW WORKER Oxygen Saturation 97% 12/08/2024 10:31 AM FLOW WORKER Inhaled Oxygen Concentration - - Weight 48.1 kg (106 lb) 12/07/2024 9:11 AM FLOW WORKER Height 161.3 cm (5' 3.5) 12/07/2024 9:11 AM FLOW WORKER Body Mass Index 18.48 12/07/2024 9:11 AM FLOW WORKER Plan of Treatment Health Maintenance Due Date Last Done Comments Breast Cancer Screening-Mammogram 1950 Colon Cancer Screening-Colonoscopy 1950 Depression Screening 1950 Hepatitis C Screening 1950 Hepatitis B Screening 1970 Osteoporosis Screening-Bone Density Scan 09/15/2014 09/15/2012, 09/15/2012 Well Visit 65+ 2017 Zoster Vaccine (2 of 2) 08/14/2018 06/19/2018 DTaP/Tdap/Td Vaccine (2 - Td or Tdap) 04/07/2022 04/07/2012, 07/30/2005 Covid-19 Vaccine (5 - 2024-2 6 season) 2025 06/24/2022, 07/15/2021, 12/01/2020, Additional history exists Influenza Vaccine (#1) 2025 , 07/11/2021, 07/18/2020, Additional history exists Fall Risk Assessment 12/08/2025 12/08/2024, 08/24/20 Pneumococcal vaccine 65+ Completed 08/02/2019, 05/12 Goals Goal Patient Goal Type Associated Problems Recent Progress Patient-Stated? Author CCM Chronic Pain Care Plan Chronic Care Management No Lula [place] APRN Note: Problem: Chronic Pain Goals: 1. Minimize further functional decline 2. Maximize quality of life 3. Control pain Strategies: - Activity/exercise program recommendation - Conservative stepwise pain medicine strategy with multi-disciplinary approach - Recommend healthy lifestyle strategies and compensatory methods as needed Medical Devices Implanted Type Area Seed And Fertilizer Specialist Device Identifier Shelf Expiration Date Model / Serial / Lot DepInternet Media [employer] Bi Mentum 47mm Press Fit Femoral Proximal Cup Acetabular [id number] - [id number] Implanted:Qty: 1 on 12/30/2023 by Aman Perry MD at [facility] Right: Hip [employer] 03/10/2028 [id number] / / [id number] [employer] Liner Acet Hip Size 28 Poly Bi Mentum Altrx 47mm [id number] - [id number] Implanted:Qty: 1 on 12/30/2023 by Aman Perry MD at [facility] Right: Hip [employer] 09/09/2027 [id number] / / [id number] [employer] Actis Collar Hip 4 High Offset Stem Femoral [id number] - [id number] Implanted:Qty: 1 on 12/30/2023 by Aman Perry MD at [facility] Right: Hip [employer] 10/10/2033 [id number] / / [id number] [employer] Articul/Nathan 28mm Cementless Hip +5mm 12/14 Taper Head Femoral Latex Free [id number] - [id number] Implanted:Qty: 1 on 12/30/2023 by Aman Perry MD at [facility] Right: Hip [employer] 11/10/2028 [id number] / / [id number] [employer] Bi Mentum 47mm Press Fit Femoral Proximal Cup Acetabular [id number] - [id number] Implanted:Qty: 1 on 12/07/2024 at [facility] Left: Hip [employer] 06/10/2028 [id number] / / [id number] [employer] Liner Acetabular Hip Bi Mentum Altrx 47mm Polyethylene Size 28 [id number] - [id number] Implanted:Qty: 1 on 12/07/2024 at [facility] Left: Hip [employer] 07/10/2027 [id number] / / [id number] [employer] Articul/Nathan 28mm Cementless Hip +1.5mm 12/14 Taper Head Femoral Latex Free [id number] - [id number] Implanted:Qty: 1 on 12/07/2024 at [facility] Left: Hip [employer] 10/10/2029 [id number] / / [id number] [employer] Actis Collar Hip 3 High Offset Stem Femoral [id number] - [id number] Implanted:Qty: 1 on 12/07/2024 at [facility] Left: Hip [employer] 02/07/2033 [id number] / / [id number] Insurance [facility]ICARE [facility] MEDICARE SUPPLEMENT MEDICARE [facility] MEDICARE SUPPLEMENT Advance Directives For more information, please contact: [phone] Documents on File Type Date Recorded Patient Manager Research And Development Expl anation ADVANCE DIRECTIVE 01/03/2024 9:57 PM POWER OF INSTRUMENTATION TECHNICIAN-MEDICAL ADVANCE DIRECTIVE 01/03/2024 8:59 PM POWER OF INSTRUMENTATION TECHNICIAN-MEDICAL ADVANCE DIRECTIVE 12/16/2023 10:09 PM POWER OF INSTRUMENTATION TECHNICIAN-MEDICAL ADVANCE DIRECTIVE 12/16/2023 9:41 PM POWER OF INSTRUMENTATION TECHNICIAN-MEDICAL * Full Code (Latest Code Status on File) Date Activated Date Inactivated Comments 12/07/2024 9:12 AM 12/08/2024 4:06 PM * Full Code Date Activated Date Inactivated Comments 12/30/2023 9:02 AM 12/31/2023 4:13 PM Care Teams Insecticide Supervisor Relationship Specialty Start Date End Date Phu Regalado DO PCP - General Internal Medicine 08/19/22
--- OUTSIDE RECORDS SUMMARY | 2025-09-03 07:06 | XMS_ITS | Encounter Summary ---
Author Organization [facility] Address [address] [place] [address] Care Team Providers Care Cloth Sander Name Role Phone Delmishad Phu Poseyian Primary Care Provider Encounter Details Date Type Department Care Team (Late st Contact Info) Description 10/15/2008 Outpatient Historical [facility], [address] Arturo Bacon MD [address] [place] [address] [address] [place] [address] Social History Tobacco Use Types Packs/Day Years Used Date Smoking Tobacco: Never Alcohol Use Standard Drinks/Week Comments No 0 (1 standard drink = 0.6 oz pur e alcohol) Comments No Sex and Gender Information Value Date Recorded Sex Assigned at Not on file Legal Sex Female 2:58 AM SENIOR BUYER Gender Identity Not on file Sexual Orientation Not on file documented as of this encounter Plan of Treatment Not on file documented as of this encounter Procedures Procedure Name Priority Date/Time Associated Diagnosis Comments PATHOLOGY Routine 10/15/2008 1:34 PM SENIOR BUYER documented in this encounter Results * PATHOLOGY (10/15/2008 1:34 PM SENIOR BUYER) FINAL REPORT [address] [address] Patient: ROSITA MCKNIGHT : 1950 Procedure Date: 10/15/2008 Accession Date: 10/15/2008 Case No: [id number] Ordering Dr: ARTURO BACON Case types AW, BW, FW, NW and SH are performed by [facility] [place], [place] SURGICAL PATHOLOGY & NON-GYNECOLOGIC CYTOPATHOLOGY REPORT DIAGNOSIS LARGE INTESTINE, SIGMOID AT 25 CM, POLYPECTOMY: - TUBULOVILLOUS ADENOMA. Specimen Description: Sigmoid at 25 cm. Operative Procedure: Colonoscopy. Patient Information/Histo ry/Diagnosis: Colon polyp(s). Adenomatous vs. hyperplastic vs. other. Gross: Received in a single container, labeled Rosita Mcknight, sigmoid at 25 cm is a vicente-red sessile piece of tissue that is 2.2 x 1.5 x 1.4 cm. Also present are four vicente-red pieces of tissue that range from 0.5 to 0.7 cm in greatest dimension. The larger tissue is inked blue at its base, is serially sectioned, and the entire specimen submitted in cassettes as follows: A1-smaller tissues; A2-larger tissue. [facility] 10.15.2008 08:26 pm Microscopic: The slides are labeled [id number], Rosita Mcknight. Sections of the sigmoid at 25 cm polyp biopsy show multiple fragments of tubulovillous adenoma, some of which are quite large. The stroma is edematous and inflamed, and there is focal erosion. There is no evidence of high-grade dysplasia or cancer. Where the cauterized base of the polyp is well-visualized, it appears uninvolved by the adenomatous process, but because of the fragmented nature of the specimen, accurate assessment of completeness of resection cannot be assured. /[facility] 10.16.2008 09:52 am Staging Form: No. ELECTRONIC SIGNATURE FOR VIRAL KUMAR MD- 10/16/08 10:53 am INTERFACE SYSTEM Specimen of unknown material (specimen) 10/15/2008 1:34 PM SENIOR BUYER Arturo Bacon MD PATHOLOGY/CYTOLOGY ORDERABLES Edited INTERFACE SYSTEM Refer to clinic/hospital department documented in this encounter Visit Diagnoses Not on filedocumented in this encounter Care Teams Cloth Sander Relationship Specialty Start Date End Date Phu Regalado DO [facility] [address] [place] [address] PCP - General Internal Medicine 11/21/14 documented as of this encounter
--- OUTSIDE RECORDS SUMMARY | 2025-09-03 07:06 | XMS_ITS | Encounter Summary ---
Author Organization [facility] Address [address] [place] [address] Care Team Providers Care State Comptroller Name Role Phone Phu Regalado DO Primary Care Provider Encounter Details Date Type Department Care Team (Latest Contact Info) Description 08/17/2005 Outpatient Historical [facility] Sukhwinder Leo MD [address] [place] [id number] SYMPTOMATIC ARTIFIC MENOPAUSE STATES (Primary Dx) Social History Tobacco Use Types Packs/Day Years Used Date Smoking Tobacco: Never Assessed Comments Unknown Sex and Gender Information Value Date Recorded Sex Assigned at Not on file Legal Sex Female 2:58 AM ASSET CARD CLERK Gender Identity Not on file Sexual Orientation Not on file documented as of this encounter Plan of Treatment Not on file documented as of this encounter Visit Diagnoses Diagnosis Symptomatic states associated with artificial menopause- Primary documented in this encounter Care Teams State Comptroller Relationship Specialty Start Date End Date Phu Regalado DO [address] [address] PCP - General Internal Medicine 11/21/14 documented as of this encounter
--- OUTSIDE RECORDS SUMMARY | 2025-09-03 07:07 | XMS_ITS | Patient Health Record ---
Author Organization [facility] Address [address] [facility] [address] [place] [address] Care Team Providers Care Shade Maker Name Role Phone Phu Regalado DO Primary Care Provider Arturo Tripp Unavailable [phone] Reason For Referral No Information Medications Medication SIG (Take, Route, Frequency, Duration) Notes Start Date End Date Status PEG-3350/Electrolytes 236 GM ML Orally as directed by providers office; Duration: 1 days 07/23/2022 Active Problems Problem Type SNOMED Code ICD Code Onset Dates Problem Status W/U Status Risk Notes Problem History of polyp of colon (situation) (540788689) History of colonic polyps (Z86.010) Active confirmed Plan Of Treatment No Information Insurance Providers Payer Name Payer Address Payer Phone Subscriber Number Group Number Insured Name Patient Relationship to Insured Coverage Start Date Coverage End Date Medicare E2 [address] [address] [place] [address] [id number] [id number] Rosita Haile Self - patient is the insured [place] Medicare Supplement E2 [address] [place] [address] [id number] Rosita Haile Self - patient is the insured
[2025-09-03 08:37] LABS: Hematocrit 38.5 % (37.0-47.0); Hemoglobin 12.3 g/dL (12.0-15.0); Immature Granulocyte Percent A 0.2 % (0-0.5); Lymphocytes Absolute Auto 1.19 K/mm3 (0.9-3.2); Mean Corpuscular HGB Conc 31.9 g/dl (32-36); Mean Corpuscular Hemoglobin 30.4 pg (26-34); Mean Corpuscular Volume 95.3 fl (80-100); Nucleated Red Blood Cells Absolute Auto 0.000 K/mm3 (0.0-0.012); Nucleated Red Blood Cells Perc 0.0 % (0.0-0.2); Platelet Count Result 243 k/mm3 (150-375); Red Blood Count 4.04 M/mm3 (4.2-5.4); White Blood Count 4.6 K/mm3 (4.5-10.0)
[2025-09-03 09:17] LABS: Alanine Aminotransferase 26 U/L (6-35); Albumin Level 4.1 g/dL (3.5-5.1); Alkaline Phosphatase 66 U/L (38-126); Anion Gap 6 mmol/L (4-12); Aspartate Amino Transferase 36 U/L (14-36); Bilirubin,Total 0.6 mg/dL (0.2-1.3); Blood Urea Nitrogen 19 mg/dL (7-17); Calcium 9.7 mg/dL (8.4-10.2); Carbon Dioxide 30 mmol/L (22-30); Chloride 105 mmol/L (98-107); Cholesterol 219 mg/dL (0-200); Estimated Glomerular Filt Rate > 60; Glucose 82 mg/dL (65-110); HDL Direct 93 mg/dL; Potassium 4.0 mmol/L (3.4-5.0); Sodium 141 mmol/L (137-145); Total Protein 6.7 g/dL (6.3-8.2); Triglycerides 56 mg/dL (<150)
[2025-09-03 09:41] LABS: Ferritin 53.80 ng/mL (11.1-264)
[2025-09-03 09:53] LABS: Thyroid Stimulating Hormone 0.931 uIU/mL (0.465-4.680)
== END 2025-09-03 07:04 | disposition home or self-care (01) ==
PROVIDERS: PCP Internal Medicine; Visit Provider Nurse Practitioner
DX: E03.9 Hypothyroidism, unspecified (principal); D64.9 Anemia, unspecified; E78.00 Pure hypercholesterolemia, unspecified; E55.9 Vitamin D deficiency, unspecified; Z13.29 Encounter for screening for other suspected endocrine disorder
CPT/HCPCS: 36415; 80053; 80061; 82306; 82728; 84443; 85025